=== PATIENT | male | born 1990 | race Caucasian/White ===

== ENCOUNTER 2018-10-20 12:05 | Day surgery (SDC) | payer MEDICARE, OTHER ==
[2018-10-20] VITALS (7 sets, daily range): BP systolic 131–144; BP diastolic 74–100; PULSE 67–79; RESP 16–20; Ht 175.3 cm; Wt 102.5 kg
[~2018-10-20] VITALS: Ht 175.3 cm; Wt 102.5 kg
[2018-10-20] MEDS ORDERED: LACTATED RINGER'S 1,000 ML IV SCH (13:30)
--- NOTE | 2018-10-20 14:55 | PREAC ---
Date/Time of Note Date/Time of Note DATE: 10/20/18 TIME: 14:54 Anesthesia Eval and Record Evaluation Time Pre-Procedure Interview DATE: 10/20/18 TIME: 14:54 Age 28 Sex male NPO: 8 hrs Preoperative diagnosis RETAINED PAINFUL HARDWARD LEFT RADIAL SHAFT Planned procedure REMOVAL OF LEFT RADIAL SHAFT HARDWARE, LEFT CARPAL TUNNEL RELEASE Past Medical History Past Medical History: Includes GI: Obesity Surgery & Anesthesia Issues No known issue Meds Anticoagulation: No Beta Kasie within 24 hr: No Reason Beta Kasie not given: Pt. not on B-Kasie No Active Prescriptions or Reported Meds Current Medications Lactated Ringer's 1,000 ml @ 30 mls/hr Q24H IV Last administered on 10/20/18at 13:27; Admin Dose 30 MLS/HR; Start 10/20/18 at 13:30 Meds reviewed: Yes Allergies Coded Allergies: No Known Allergy (Unverified , 10/20/18) Allergies Reviewed: Yes Labs/Studies Labs Reviewed: Reviewed by anesthesiologist Result Diagram: 10/20/18 1304 10/20/18 1304 Laboratory Tests 10/20/18 13:04 test: N/A Pre-procedure Exam Last vitals Vital Signs Date Temp Pulse Resp B/P (MAP) Pulse Ox O2 O2 Flow FiO2 Time Delivery Rate 10/20/18 98.5 67 16 131/74 99 13:21 (93) Airway: Adequate mouth opening, Adequate thyromental dist Mallampati: Mallampati I Teeth: Normal Lung: Normal Heart: Normal ASA Physical Status ASA physical status: 2 Emergency: None Planned Anesthetic General/MAC: LMA Nerve block: Brachial plexus (left) Planned Pain Management Single shot nerve block, Parenteral pain med Pre-operative Attestations Prior to commencing anesthesia and surgery, the patient was re-evaluated, there was verification of: *The patient's identity *The results of appropriate recent lab work and preoperative vital signs *The above evaluation not changing prior to induction *Anesthetic plan, risk benefits, alternative and complications discussed with patient/family; questions answered; patient/family understands, accepts and wishes to proceed. DESIRE HUGGINS October 20, 2018 14:55
[2018-10-20] MEDS ORDERED: CEFAZOLIN 1 GM INJ ONE (15:00)
[2018-10-20] MEDS ORDERED: BUPIVACAINE 0.5% (SDV) 30 ML INJ ONE (15:10)
[2018-10-20] MEDS ORDERED: MIDAZOLAM 1 MG/ML 2 ML INJ ONE ×2 (15:14→15:59)
--- NOTE | 2018-10-20 15:21 | HPN ---
Date/Time of Note Date/Time of Note DATE: 10/20/18 TIME: 15:21 Interval H&P Admission Note Pt. seen H&P reviewed: No system changes GARRETT BAILEY October 20, 2018 15:21
[2018-10-20] MEDS ORDERED: POLYMYXIN/BACITRACIN 1L IRRIG ONE (16:20)
--- NOTE | 2018-10-20 17:02 | OPPN ---
Date/Time of Note Date/Time of Note DATE: 10/20/18 TIME: 17:01 Operative Report Preoperative Diagnosis Left radial shaft deep painful hardware left carpal tunnel syndrome Postoperative Diagnosis Left radial shaft deep painful hardware left carpal tunnel syndrome Operation/Procedure Performed Left radial shaft deep painful hardware removal left carpal tunnel release Surgeon see signature line dental ceramist assistant none Anesthesia: MAC Estimated blood loss: 0 - 10 ml's Transfusion Required none Specimen left radial shaft plate and screws Grafts/Implants none Complications none GARRETT BAILEY October 20, 2018 17:02
[2018-10-20] MEDS ORDERED: LIDOCAINE 2% (SDV) 5 ML INJ ONE (17:05)
--- NOTE | 2018-10-20 17:13 | PAC ---
Date/Time of Note Date/Time of Note DATE: 10/20/18 TIME: 17:13 Post-Anesthesia Notes Post-Anesthesia Note Last documented vital signs Vital Signs Date Temp Pulse Resp B/P (MAP) Pulse Ox O2 O2 Flow FiO2 Time Delivery Rate 10/20/18 98.5 67 16 131/74 99 1713 (93) Activity: WNL Respiratory function: WNL Cardiovascular function: WNL Mental status: Baseline Pain reasonably controlled: Yes Hydration appropriate: Yes Nausea/Vomiting absent: Yes DESIRE HUGGINS October 20, 2018 17:13
[2018-10-20] MEDS ORDERED: MEPERIDINE 25 MG INJ IV PRN (17:30)
[2018-10-20] MEDS ORDERED: FENTAnyl 50 MCG/ML VIAL IV PRN ×3 (17:30)
[2018-10-20] MEDS ORDERED: ONDANSETRON 4 MG INJ IV PRN (17:30)
[2018-10-20] MEDS ORDERED: hydrALAzine 20 MG INJ IV PRN (17:30)
[2018-10-20] MEDS ORDERED: MIDAZOLAM 1 MG/ML 2 ML INJ IV PRN (17:30)
[2018-10-20] MEDS ORDERED: KETOROLAC 30 MG INJ IV PRN (17:30)
[2018-10-20] MEDS ORDERED: EPHEDrine SULFATE 50 MG/5 ML SYG IV PRN (17:30)
[2018-10-20] MEDS ORDERED: OXYCODONE/ACETAMINOPHEN (5/325) TAB PO PRN ×2 (17:30)
[2018-10-20] MEDS ORDERED: LABETALOL HCL 20MG INJ IV PRN (17:30)
[2018-10-20] MEDS ORDERED: DIPHENHYDRAMINE 50 MG INJ IV PRN (17:30)
[2018-10-20] MEDS ORDERED: ALBUTEROL 0.083% (NEB) 2.5 MG/3 ML AMP HHN PRN (17:30)
--- NOTE | 2018-10-23 09:35 | RADRPT ---
Vent Rate: 66 bpm RR Interval: 908 msec HI Interval: 165 msec QRS Duration: 88 msec QT Interval: 384 msec QTC Interval: 403 msec P-R-T Bicknell: 16 - 51 - 48 degrees Sinus rhythm...normal P axis, V-rate 50- 99 Electronically Signed By: Shahram Cordero
--- NOTE | 2018-10-24 15:45 | OPR ---
DATE OF OPERATION: 10/20/2018 SURGEON: Derick Lee MD ANESTHESIA: Peripheral nerve block plus MAC. PREOPERATIVE DIAGNOSES: 1. Deep painful retained hardware, left radial shaft. 2. Left carpal tunnel syndrome. 3. Left wrist flexor pollicis longus tendon adhesions with tenosynovitis at the carpal tunnel. POSTOPERATIVE DIAGNOSES: 1. Deep painful retained hardware, left radial shaft. 2. Left carpal tunnel syndrome. 3. Left wrist flexor pollicis longus tendon adhesions with tenosynovitis at the carpal tunnel. PROCEDURES: 1. Removal of deep hardware, left radial shaft. 2. Left carpal tunnel release, open. 3. Left wrist and hand flexor tenosynovectomy. OPERATIVE FINDINGS: 1. Retained left radial shaft plate and screws. 2. Compression of the median nerve at the carpal tunnel with tenosynovitis. INDICATION FOR PROCEDURE: A 28-year-old male with previous injury to the left radial shaft who under went surgical fixation. Pain is related to the hardware as well as carpal tunnel symptoms and swelli ng at the carpal canal consistent with tenosynovitis. We discussed the options and the patient elect ed to proceed with surgical intervention, understanding the risks and benefits. DESCRIPTION OF PROCEDURE: The patient was seen in the preoperative area and all further questions we re answered. Again, he gave informed consent understanding risks and benefits. He was taken to the operative suite and placed in supine position. Sedation was administered and Ancef 2 grams IV. A pe ripheral nerve block was performed by the anesthesia team and tourniquet was placed on the left upper extremity. Left upper extremity was prepped with ChloraPrep stick and draped in usual sterile fashi on. Esmarch bandage was used to exsanguinate the extremity and tourniquet was inflated to 250 mmHg. Attention was first turned to the carpal tunnel and a 2 cm incision at the base of the palm was util ized with sharp dissection carried down through skin and subcutaneous tissue. The palmar aponeurosis was incised along its ulnar border and retractors were deepened. The transverse carpal ligament was divided along in its ulnar border approximately 3 mm radial to the hook of the hamate. Retraction w as placed proximally and distally and the proximal and distal to the transverse carpal ligament were divided under direct visualization. I then inspected the carpal canal and there was tenosynovitis garcia rrounding the flexor tendons. A flexor tenosynovectomy was performed with care taken to protect the median nerve. The tenosynovectomy was accomplished using tenotomy scissors and Adson forceps. After tenosynovectomy, the tendons glided independently and there was no further inflamed tissue. The wou nd was copiously irrigated. Skin was closed with 5-0 nylon. Attention was then turned to the radial shaft and the previous surgical incision was utilized with sharp dissection carried down through ski n and subcutaneous tissue. The FCR sheath was incised and the FCR tendon was retracted ulnarly. The FCR subsheath was incised and the FPL tendon was retracted ulnarly. There were adhesions of the FPL tendon along the plate which were freed up using Bovie electrocautery as well as a Warren elevator. After the tendon adhesions were released of the FPL along the plate, the plate was visualized and scr ews were removed with a Synthes 3.5 mm screwdriver. Two of the screws had broken screw heads and the remainder of the shaft of the screw was maintained within the bone. I did not cause further trauma to extract the screws as they were below the surface of the bone. The plate was removed as were 4 fu ll screws and 2 partial screws that were broken. The wound was irrigated and skin was closed with 5- 0 nylon. Xeroform was placed over the wounds followed by sterile gauze, Webril and a short arm splin t. Tourniquet was deflated after 55 minutes and patient was awakened from anesthesia. He was taken to postoperative suite in stable condition, tolerated procedure well without complication. SPECIMENS: Left radial shaft plate and screws. ESTIMATED BLOOD LOSS: 5 mL. COUNTS: Sponge, instrument, needle counts were correct. TOURNIQUET TIME: 55 minutes. CONDITION ON DISCHARGE: Stable. The patient was given a nonrefillable 5-day prescription for pain medication for surgery today. Dictated By: DERICK ALARCON/KINDRA Conf#: [id number] DID#: [id number]
== END 2018-10-20 18:15 | disposition home or self-care (01) ==
LOC: SDS 12:05
PROVIDERS: ATTEND Orthopaedic Surgery Hand Surgery
DX: T84.84XA Pain due to internal orthopedic prosthetic devices, implants and grafts, initial encounter (principal); Y79.3 Surgical instruments, materials and orthopedic devices (including sutures) associated with adverse incidents; Y83.8 Other surgical procedures as the cause of abnormal reaction of the patient, or of later complication, without mention of misadventure at the time of the procedure; G56.02 Carpal tunnel syndrome, left upper limb; M65.832 Other synovitis and tenosynovitis, left forearm
CPT/HCPCS: 20680; 25115; 80048; 85025; 85610; 85730; 88300; 93005; J0690; J2250; J3010